=== PATIENT | male | born 1990 | race Caucasian/White ===

== ENCOUNTER 2021-01-09 13:10 | Emergency (ER) | payer OTHER ==
[~2021-01-09] VITALS: Ht 180.3 cm; Wt 70.3 kg
[2021-01-09] MEDS ORDERED: PREDNISONE20 M1 PO (16:37)
[2021-01-09] MEDS ORDERED: PROVENTIL HFA6.7 GM INH (16:37)
== END 2021-01-09 16:42 | disposition home or self-care (01) ==
LOC: ED 13:10
DX: J40 Bronchitis, not specified as acute or chronic (principal); Z20.822 Contact with and (suspected) exposure to COVID-19